=== PATIENT | female | born 1955 | race Hispanic/Latino ===

== ENCOUNTER 2017-02-11 12:07 | Day surgery (SDC) | payer BC ==
[2017-02-05 12:32] VITALS: BMI 27.4
[2017-02-11] MEDS ORDERED: Propofol 10 mg/ml Inj (20 ML) ONE (14:03)
[2017-02-11] MEDS ORDERED: Sodium Chloride 0.9% 1,000 ML IV SCH (15:00)
[2017-02-11 16:33] VITALS: BP 144/54; PULSE 70; RESP 20; TEMP 98; O2SAT 98
== END 2017-02-11 17:00 | disposition home or self-care (01) ==
LOC: ENDO 12:07
PROVIDERS: ATTEND Internal Medicine Gastroenterology
DX: K57.30 Diverticulosis of large intestine without perforation or abscess without bleeding (principal); K55.20 Angiodysplasia of colon without hemorrhage; K64.8 Other hemorrhoids
CPT/HCPCS: 45380; 45382; 87324; 88305; J2001; J2704; J7040 ×2

== ENCOUNTER 2018-08-31 11:37 | Day surgery (SDC) | payer BC ==
[2018-08-26 13:52] VITALS: BMI 26.7
[2018-08-31 12:13] VITALS: TEMP 98.4
[2018-08-31] MEDS ORDERED: Propofol 10 mg/ml Inj (20 ML) ONE (14:43)
[2018-08-31] MEDS ORDERED: Midazolam 2 MG/2 ML VIAL ONE (14:43)
[2018-08-31] MEDS ORDERED: Sodium Chloride 0.9% 1,000 ML IV SCH (15:30)
[2018-08-31 16:47] VITALS: BP 146/72; PULSE 77; RESP 18; O2SAT 98
== END 2018-08-31 17:23 | disposition home or self-care (01) ==
LOC: ENDO 11:37
PROVIDERS: ATTEND Internal Medicine Gastroenterology
DX: K22.70 Barrett's esophagus without dysplasia (principal); K29.50 Unspecified chronic gastritis without bleeding; K31.7 Polyp of stomach and duodenum; K26.9 Duodenal ulcer, unspecified as acute or chronic, without hemorrhage or perforation; K29.80 Duodenitis without bleeding; K52.9 Noninfective gastroenteritis and colitis, unspecified; K57.30 Diverticulosis of large intestine without perforation or abscess without bleeding; K64.8 Other hemorrhoids
CPT/HCPCS: 43239; 45380; 88305; 88312; 88342; J2001; J2250; J2704; J3010; J7030; J7040